=== PATIENT | male | born 1995 | race African-American/Black ===

== ENCOUNTER 2022-06-30 22:53 | Emergency (ER) | payer BC ==
[~2022-06-30] VITALS: Ht 188 cm; Wt 113.0 kg
[2022-06-30 23:00] VITALS: BP 169/100
[2022-06-30 23:26] LABS: CLARITY URINE CLEAR (CLEAR); COLOR URINE YELLOW (YELLOW); KETONES URINE TRACE (NEGATIVE); LEUKOCYTE ESTERASE URINE 2+ (NEGATIVE); NITRITE URINE NEGATIVE (NEGATIVE); OCCULT BLOOD URINE 3+ (NEGATIVE); PH URINE 6.5 (4.5-8.0); PROTEIN URINE TRACE (NEGATIVE); SPECIFIC GRAVITY URINE 1.026 (1.005-1.030)
[2022-07-01] MEDS ORDERED: IBUP-2029 MT (01:06)
[2022-07-01] MEDS ORDERED: DOXY100T2 MT (01:06)
[2022-07-01] MEDS ORDERED: AZITHROMYCIN 500 MG TABLET PO ONE (01:15)
[2022-07-01] MEDS ORDERED: CEFTRIAXONE SODIUM 500 MG/VIAL IM ONE (01:15)
[2022-07-04 19:10] LABS: NEISSERIA GONORRHOEAE NAA Negative (Negative)
== END 2022-07-01 01:21 | disposition home or self-care (01) ==
LOC: ER 22:53
DX: N45.1 Epididymitis (principal); Z98.890 Other specified postprocedural states
CPT/HCPCS: 76870; 81003; 87491; 87591; 93976; 96372; 99285; J0696